=== PATIENT | female | born 1965 | race Caucasian/White ===

== ENCOUNTER → 2020-09-13 | Outpatient (CLI) | payer OTHER ==
[~2020-09-13] MED LIST: NATURE THYROID PO; PROAIR HFA8.5 GM INH
== END ==
LOC: LAB 09-12 12:26
PROVIDERS: ATTEND Specialist
DX: Z01.812 Encounter for preprocedural laboratory examination (principal); Z20.828 Contact with and (suspected) exposure to other viral communicable diseases

== ENCOUNTER → 2020-09-14 | Outpatient (CLI) | payer OTHER ==
[~2020-09-14] VITALS: Ht 152.4 cm; Wt 61.2 kg
--- NOTE | 2020-09-16 09:53 | P ---
[facility] [place] [address] PROCEDURE REPORT Name: DORI CURRY Room #: REG Niraj Lopez#: [id number] Admission: 09/14/20 Attend Phys: Alden Gil Discharge: Date of : 67 Report #: [id number] THIS REPORT FOR: cc: Pop Atkins MD, Neal A. MD McElhinney, Christian C. MD ~ CC: Alden Atkins MD DATE OF SERVICE: 09/14/2020 PROCEDURE PERFORMED: Colonoscopy with biopsies. HISTORY OF PRESENT ILLNESS: The patient is a 55-year-old female who presents today for her routine screening colonoscopy. No previous history of endoscopy, no family history of colon cancer. The patient denies any symptoms. DESCRIPTION OF PROCEDURE: The risks and benefits of the procedure were explained to the patient, those risks including but not limited to bleeding, perforation and the risk of sedation. She understood these risks and gave informed consent. Sedation was given using propofol per Anesthesia. Next, a digital rectal exam was initially performed, which was normal. Next, using a standard Olympus colonoscope, the scope was placed in the patient's anus and advanced under direct vision to the cecum. The overall prep was excellent. The cecum and ileocecal valve were normal in appearance. The ascending, transverse, and descending colon were normal. In the sigmoid colon, a 4 mm sessile polyp was noted. This was removed with cold forceps. In the rectum, a 3 mm sessile polyp also noted and removed with cold forceps. On retroflexion, small internal hemorrhoids were noted, otherwise normal colonoscopy. The scope was then withdrawn and the procedure terminated. The patient tolerated the procedure well. IMPRESSION: 1. Two small colonic polyps. 2. Small internal hemorrhoids. 3. Otherwise, normal colonoscopy. RECOMMENDATIONS: 1. Await biopsy results. 2. If polyps are hyperplastic, repeat in 10 years; if adenomatous polyps, repeat in [address] [address] PROCEDURE REPORT Name: DORI CURRY Room #: REG SHANNON Lopez#: [id number] Admission: 09/14/20 Attend Phys: Alden Gil Discharge: Date of : 67 Report #: [id number] Thank you for allowing me to participate in her care. <ELECTRONICALLY SIGNED> By: Alden Jo MD 09/16/20 [id number] Alden Jo MD /nt
--- NOTE | 2020-09-16 18:06 | PATH ---
[facility] [address] [place] [address] PATHOLOGY RPT PROCEDURE Name: DORI CURRY Room #: REG SHANNON Moreno.#: [id number] Admission: 09/14/20 Date of : 67 Discharge: Report #: [id number] Path Case #: [id number] [facility] Accession Number: [id number] . 01 Material submitted: . PART A: colon - POLYP AT SIGMOID COLON. Modifiers: sigmoid PART B: rectum - POLYP AT RECTUM . 01 Clinical history: . SCREENING, COLON CA . 02 Diagnosis: A. Polyp, sigmoid colon, endoscopic biopsy: - Hyperplastic polyp. - Negative for dysplasia. . B. Polyp, at rectum, endoscopic biopsy: - Hyperplastic polyp. - Negative for dysplasia. (IUV:pit 09/16/2020) QTP 09/16/2020 1318 Local . 02 Electronically signed: . Rahel Rayo MD, Pathologist NPI- [id number] . 01 Gross description: . A. Received in formalin labeled "Dori Curry, polyp at sigmoid colon" are two franz-brown soft tissue fragments measuring in aggregate 0.5 x 0.4 x 0.1 cm. The specimen is submitted entirely in A1. . B. Received in formalin labeled "Dori Curry, polyp at rectum" are two franz-brown soft tissue fragments measuring in aggregate 0.4 x 0.3 x 0.1 cm. The specimen is submitted entirely in B1. ([facility]; 09/15/2020) [facility] 09/15/2020 1302 Local . 02 Pathologist provided ICD-10: K63.5, K62.1 . 02 CPT . 772972, 371995 Specimen Comment: A courtesy copy of this report has been sent to [phone], [phone] Specimen Comment: [id number] Specimen Comment: Report sent to / DR PENA Performed at: 01 [place] [address] PATHOLOGY RPT PROCEDURE Name: DORI CURRY Room #: REG Nriaj Lopez#: [id number] Admission: 09/14/20 Date of : 67 Discharge: Report #: [id number] Path Case #: [id number] [address] [address], [place], [place] [id number] MD Tino Umaña MD Phone: [phone] Performed at: [address] [id number] MD Rahel Rayo MD Phone: [phone]
== END | disposition home or self-care (01) ==
LOC: GI
PROVIDERS: ATTEND Specialist
DX: Z12.11 Encounter for screening for malignant neoplasm of colon (principal); K63.5 Polyp of colon; K62.1 Rectal polyp; E03.9 Hypothyroidism, unspecified; J45.909 Unspecified asthma, uncomplicated; K21.9 Gastro-esophageal reflux disease without esophagitis; Z98.890 Other specified postprocedural states; Z79.899 Other long term (current) drug therapy
CPT/HCPCS: 62110; 62900